=== PATIENT | female | born 1990 ===

== ENCOUNTER 2023-01-05 14:42 | Outpatient (CLI) | payer OTHER | END 2023-01-05 14:43 | disposition home or self-care (01) | LOC: ULT 14:42 | PROVIDERS: ATTEND Physician Assistant Medical | DX: K62.5 Hemorrhage of anus and rectum (principal); R10.11 Right upper quadrant pain; R63.5 Abnormal weight gain; R19.8 Other specified symptoms and signs involving the digestive system and abdomen | CPT/HCPCS: 76700 ==